=== PATIENT | male | born 1995 | race African-American/Black ===

== ENCOUNTER 2017-08-01 14:37 | Emergency (ER) | payer SELFPAY ==
[~2017-08-01 14:37] MED LIST: ALBU8I INH; DOXY100C PO; FLUTI110I INH; FLUTI220I INH; MEDR4PAK PO; MONT10TA2 PO
[2017-08-01 14:48] VITALS: BP 136/86; PULSE 137; RESP 22; TEMP 98.6; O2SAT 99
[2017-08-01 14:52] VITALS: BP 136/86; PULSE 124; RESP 22; TEMP 98.6; O2SAT 99
--- NOTE | 2017-08-01 14:53 | PD ---
HPI Chief Complaint: Respiratory Symptoms Time Seen by Provider: 14:49 Travel History International Travel<30 days: No Contact w/Intl Traveler<30days: No Traveled to known affect area: No History of Present Illness HPI 21-year-old Afro-[place]ic male with history of asthma presents the emergency department via EMS with severe asthma exacerbation. Patient states he's been having difficulty over the past 2 weeks. Patient has a nebulizer and albuterol inhaler which he's been using without improvement. Patient denies fever or chills. He has chest pain from working to breathe. Patient is able speak in short sentences. He denies abdominal pain nausea or vomiting. Patient does admit to smoking. His chest pain is about a 6 out of 10. Patient already received 125 mg Solu-Medrol IV as well as DuoNeb 3 via EMS. He has no known drug allergies. PFSH Past Medical History Asthma: Yes Diminished Hearing: No Gastrointestinal Disorders: No Respiratory: Yes (ASTHMA) Immunizations Current: Yes ?: Not Past Surgical History Other Surgery: No Social History Alcohol Use: No Tobacco Use: Yes (3 black and milds per day) Substance Use: No Allergies-Medications (Allergen,Severity, Reaction): Coded Allergies: No Known Allergies (Verified Adverse Reaction, Unknown, 08/01/17) Reported Meds & Prescriptions Reported Meds & Active Scripts Active Azithromycin 500 Mg Tab 500 Mg PO DAILY Albuterol Neb (Albuterol Sulfate) 2.5 Mg/3 Ml Neb 2.5 Mg NEB Q4HR NEB PRN Ventolin Hfa 18 GM Inh (Albuterol Sulfate) 90 Mcg/Act Aer 2 Puff INH Q4-6H PRN Flovent Hfa 12 GM Inh (Fluticasone Propionate) 220 Mcg/Act Inh 1 Puff INH BID Use daily at the same time. Singulair (Montelukast Sodium) 10 Mg Tab 10 Mg PO HS Prednisone 20 Mg Tab 20 Mg PO BID 7 Days Doxycycline Hyclate 100 Mg Cap 100 Mg PO BID Singulair (Montelukast Sodium) 10 Mg Tab 10 Mg PO HS Medrol Dosepak (Methylprednisolone) 4 Mg Dspk 4 Mg PO DIRECTED Per Pharmacist direction Flovent Hfa 12 GM Inh (Fluticasone Propionate) 110 Mcg/Act Inh 1 Puff INH BID Reported Singulair (Montelukast Sodium) 10 Mg Tab 10 Mg PO HS TAKE ONE 10 MG PILL DAILY BEFORE BED Flovent Hfa (Fluticasone Propionate) 220 Mcg Aero 2 Puff INH BID Ventolin Hfa (Albuterol Sulfate) 8 Gm Aero 2 Puff INH QID * SHAKE WELL BEFORE USE * DO 2 PUFFS 4 TIMES A DAY AND EVERY 2 HOURS IF NEEDED FOR WHEEZING. Review of Systems Except as stated in HPI: all other systems reviewed are Neg General / Constitutional: No: Fever, Chills Eyes: No: Visual changes HENT: No: Headaches Cardiovascular: Positive: Chest Pain or Discomfort Respiratory: Positive: Cough, Shortness of Breath, Wheezing, No: Sneezing, Orthopnea, Hemoptysis, Stridor, Night Sweats, Pleuritic Pain Gastrointestinal: No: Nausea, Vomiting, Diarrhea, Abdominal Pain Genitourinary: No: Dysuria Musculoskeletal: No: Pain Skin: No Rash Neurologic: No: Weakness Psychiatric: No: Depression Endocrine: No: Polydipsia Hematologic/Lymphatic: No: Easy Bruising Physical Exam Narrative GENERAL: Patient appears in mild to moderate respiratory distress. O2 sat is 100%. SKIN: Warm and dry. Normal Color. Normal turgor. HEAD: Atraumatic. Normocephalic. EYES: Pupils equal and round. No scleral icterus. No injection or drainage. ENT: No nasal bleeding or discharge. Mucous membranes pink and moist. TMs are clear. Pharynx is clear. Airway is patent. NECK: Trachea midline. Supple and nontender. CARDIOVASCULAR: Regular rate and rhythm. RESPIRATORY: Mild to moderate accessory muscle use. Moderate Diffuse wheezes throughout to auscultation. Breath sounds equal bilaterally. GASTROINTESTINAL: Abdomen soft, non-tender, nondistended. Hepatic and splenic margins not palpable. MUSCULOSKELETAL: Extremities without clubbing, cyanosis, or edema. No obvious deformities. NEUROLOGICAL: Awake and alert. No obvious cranial nerve deficits. Motor grossly within normal limits. Five out of 5 muscle strength in the arms and legs. Normal speech. PSYCHIATRIC: Appropriate mood and affect; insight and judgment normal. Data Data Last Documented VS Vital Signs Date Time Temp Pulse Resp B/P (MAP) Pulse Ox O2 Delivery O2 Flow Rate FiO2 08/01/17 14:55 100 Room Air 08/01/17 14:55 98.6 130 22 136/86 (103) Orders Orders Electrocardiogram (08/01/17 14:53) Complete Blood Count With Diff (12/31/17 14:53) Comprehensive Metabolic Panel (08/01/17 14:53) Chest, Single Ap (08/01/17 14:53) Ecg Monitoring (08/01/17 14:53) Iv Access Insert/Monitor (08/01/17 14:53) Oximetry (08/01/17 14:53) Oxygen Administration (08/01/17 14:53) Prednisone (Deltasone) (08/01/17 15:00) Albuterol-Ipratropium Neb (Duoneb Neb) (08/01/17 15:00) Sodium Chloride 0.9% Flush (Ns Flush) (08/01/17 15:00) Azithromycin (Zithromax) (08/01/17 15:00) Ondansetron Inj (Zofran Inj) (08/01/17 15:56) Ondansetron Inj (Zofran Inj) (08/01/17 16:15) Labs Laboratory Tests Test 08/01/17 15:00 White Blood Count 10.1 TH/MM3 Red Blood Count 5.32 MIL/MM3 Hemoglobin 16.1 GM/DL Hematocrit 47.1 % Mean Corpuscular Volume 88.5 FL Mean Corpuscular Hemoglobin 30.2 PG Mean Corpuscular Hemoglobin Concent 34.1 % Red Cell Distribution Width 13.1 % Platelet Count 194 TH/MM3 Mean Platelet Volume 7.2 FL Neutrophils (%) (Auto) 79.8 % Lymphocytes (%) (Auto) 10.6 % Monocytes (%) (Auto) 7.3 % Eosinophils (%) (Auto) 1.6 % Basophils (%) (Auto) 0.7 % Neutrophils # (Auto) 8.1 TH/MM3 Lymphocytes # (Auto) 1.1 TH/MM3 Monocytes # (Auto) 0.7 TH/MM3 Eosinophils # (Auto) 0.2 TH/MM3 Basophils # (Auto) 0.1 TH/MM3 CBC Comment DIFF FINAL Differential Comment Blood Urea Nitrogen 10 MG/DL Creatinine 1.08 MG/DL Random Glucose 96 MG/DL Total Protein 8.3 GM/DL Albumin 4.5 GM/DL Calcium Level 9.5 MG/DL Alkaline Phosphatase 70 U/L Aspartate Amino Transf (AST/SGOT) 34 U/L Alanine Aminotransferase (ALT/SGPT) 30 U/L Total Bilirubin 0.5 MG/DL Sodium Level 141 MEQ/L Potassium Level 3.5 MEQ/L Chloride Level 107 MEQ/L Carbon Dioxide Level 24.8 MEQ/L Anion Gap 9 MEQ/L Estimat Glomerular Filtration Rate 106 ML/MIN MDM Medical Decision Making Medical Screen Exam Complete: Yes Emergency Medical Condition: Yes Differential Diagnosis Bronchitis. Pneumonia. Asthma with acute exacerbation. Wheezing. Narrative Course Patient is medically stable at time of exam. Patient is given prednisone 60 mg by mouth as well as DuoNeb 3. Patient is given azithromycin 500 mg by mouth. Chest x-ray is ordered as well as CBC and CMP. EKG is ordered. EKG shows sinus tachycardia without ST changes. Labs are unremarkable. Patient is reassessed after the above treatment plan, and feels improved. Patient did develop some nausea, with vomiting 1. Patient was treated with Zofran 4 mg IV. Patient is reassessed and lung sounds are much improved. Patient will be continued on prednisone 20 mg twice a day 7 days. Patient is continued on azithromycin 500 mg daily 5 days. Patient is given refills of his Singulair 10 mg daily. Patient given refill of his Flovent 220, 1 puff twice a day. Patient is given refills of his Ventolin metered-dose inhaler, and albuterol for his nebulizer. Patient is recommended to follow-up with primary care physician as soon as possible. Patient is told to quit smoking as soon as possible. Patient can return to emergency department if symptoms worsen. Diagnosis Primary Impression: Asthma exacerbation Qualified Codes: J45.41 - Moderate persistent asthma with (acute) exacerbation Referrals: [facility] Patient Instructions: Asthma (ED), General Instructions, How to Stop Smoking ( DC) Additional Instructions: Patient will be continued on prednisone 20 mg twice a day 7 days. Patient is continued on azithromycin 500 mg daily 5 days. Patient is given refills of his Singulair 10 mg daily. Patient given refill of his Flovent 220, 1 puff twice a day. Patient is given refills of his Ventolin metered-dose inhaler, and albuterol for his nebulizer. Patient is recommended to follow-up with primary care physician as soon as possible. Patient is told to quit smoking as soon as possible. Patient can return to emergency department if symptoms worsen. Med/Other Pt SpecificInfo: Prescription(s) given Scripts Azithromycin (Azithromycin) 500 Mg Tab 500 MG PO DAILY for Infection, #5 TAB 0 Refills Prov: Jeffrey Golden MD 08/01/17 Albuterol Neb (Albuterol Neb) 2.5 Mg/3 Ml Neb 2.5 MG NEB Q4HR NEB Y for SHORTNESS OF BREATH, #120 NEBULE 0 Refills Prov: Jeffrey Golden MD 08/01/17 Albuterol 18 GM Inh (Ventolin Hfa 18 GM Inh) 90 Mcg/Act Aer 2 PUFF INH Q4-6H Y for SHORTNESS OF BREATH, #1 INHALER 0 Refills Prov: Jeffrey Golden MD 08/01/17 Fluticasone 12 GM Inh (Flovent Hfa 12 GM Inh) 220 Mcg/Act Inh 1 PUFF INH BID for Asthma Management, #1 INHALER 0 Refills Use daily at the same time. Prov: Jeffrey Golden MD 08/01/17 Montelukast (Singulair) 10 Mg Tab 10 MG PO HS, #30 TAB 0 Refills Prov: Jeffrey Golden MD 08/01/17 Prednisone (Prednisone) 20 Mg Tab 20 MG PO BID for 7 Days, #14 TAB 0 Refills Prov: Jeffrey Golden MD 08/01/17 Disposition: 01 DISCHARGE HOME Condition: Stable Devante Jaimes Aug 01, 2017 14:53
[2017-08-01 14:55] VITALS: BP 136/86; PULSE 130; RESP 22; TEMP 98.6; O2SAT 99
[2017-08-01] MEDS ORDERED: SODIUM CHLORIDE 0.9% FLUSH 10 ML FLUSH IVF PRN (15:00)
[2017-08-01] MEDS ORDERED: predniSONE 20 MG TAB PO ONE (15:00)
[2017-08-01] MEDS ORDERED: AZITHROMYCIN 250 MG TAB PO ONE (15:00)
[2017-08-01] MEDS: RESP: ALBUTEROL 2.5 MG/IPRATROPIUM 0.5 MG NEB (SCH) INH (15:14)
[2017-08-01 15:49] LABS: AUTOMATED NEUTROPHIL # 8.1 TH/MM3 (1.8-7.7); BASOPHIL # 0.1 TH/MM3 (0-0.2); BASOPHIL % 0.7 % (0.0-2.0); EOSINOPHIL # 0.2 TH/MM3 (0-0.4); EOSINOPHIL % 1.6 % (0.0-4.0); HEMATOCRIT 47.1 % (39.0-51.0); HEMOGLOBIN 16.1 GM/DL (13.0-17.0); LYMPH % 10.6 % (9.0-44.0); LYMPHOCYTE # 1.1 TH/MM3 (1.0-4.8); MEAN CELL VOLUME 88.5 FL (80.0-100.0); MEAN CORPUSCULAR HEMOGLOBIN 30.2 PG (27.0-34.0); MEAN CORPUSCULAR HGB CONC 34.1 % (32.0-36.0); MEAN PLATELET VOLUME 7.2 FL (7.0-11.0); MONO % 7.3 % (0.0-8.0); MONOCYTE # 0.7 TH/MM3 (0-0.9); NEUT % 79.8 % (16.0-70.0); PLATELET COUNT 194 TH/MM3 (150-450); RED BLOOD COUNT 5.32 MIL/MM3 (4.50-5.90); RED CELL DISTRIBUTION WIDTH 13.1 % (11.6-17.2); WHITE BLOOD COUNT 10.1 TH/MM3 (4.0-11.0)
[2017-08-01] MEDS ORDERED: ONDANSETRON HCL 4 MG/2 ML VIAL ONE (15:56)
[2017-08-01 16:04] LABS: ALKALINE PHOSPHATASE 70 U/L (45-117); ALT (GPT) 30 U/L (9-52); TOTAL BILIRUBIN ADULT 0.5 MG/DL (0.2-1.0); TOTAL PROTEIN 8.3 GM/DL (6.4-8.2)
[2017-08-01 16:06] LABS: ALBUMIN 4.5 GM/DL (3.4-5.0); AST (GOT) 34 U/L (15-39); BICARBONATE 24.8 MEQ/L (21.0-32.0); BLOOD UREA NITROGEN 10 MG/DL (7-18); CALCIUM 9.5 MG/DL (8.5-10.1); CHLORIDE 107 MEQ/L (98-107); CREATININE 1.08 MG/DL (0.60-1.30); GLOMERULAR FILTRATION RATE 106 ML/MIN (>89); GLUCOSE,RANDOM 96 MG/DL (74-106); SODIUM (NA) 141 MEQ/L (136-145)
--- NOTE | 2017-08-01 16:06 | RADRPT ---
EXAM DATE/TIME: 08/01/2017 15:31 [facility] COMPARISON: CHEST SINGLE AP, July 07, 2016, 0:24. INDICATIONS : Wheezing MEDICAL HISTORY : None. SURGICAL HISTORY : None. ENCOUNTER: Initial ACUITY: 1 day PAIN SCORE: 0/10 LOCATION: Bilateral chest FINDINGS: The lungs are clear without infiltrate, nodule, or mass. There is no appreciable pleural effusion fo r technique. Heart and mediastinum are unremarkable. CONCLUSION: No acute cardiopulmonary disease. Chilango Perez MD on August 01, 2017 at 16:03 Board Certified Radiologist. This report was verified electronically.
[2017-08-01] MEDS ORDERED: VENTAER INH (16:08)
[2017-08-01] MEDS ORDERED: ALBU0.08 NEB (16:08)
[2017-08-01] MEDS ORDERED: PRED20 PO (16:08)
[2017-08-01] MEDS ORDERED: MONT10TA2 PO (16:08)
[2017-08-01] MEDS ORDERED: FLUTI220I INH (16:08)
[2017-08-01] MEDS ORDERED: AZIT500T2 PO (16:08)
[2017-08-01] MEDS ORDERED: ONDANSETRON HCL 4 MG/2 ML VIAL IV PUSH ONE (16:15)
[2017-08-01 17:28] VITALS: BP 120/67
--- NOTE | 2017-08-01 19:34 | EKG ---
Date Performed: 08/01/2017 Time Performed: 15:13:20 PTAGE: 21 years EKG: SINUS TACHYCARDIA BORDERLINE RIGHT AXIS DEVIATION PATTERN CONSISTENT WITH PULMONARY DISEASE possible Lateral myocardial infarction POSSIBLE RIGHT VENTRICULAR CONDUCTION DELAY NONSPECIFIC T-WAV E ABNORMALITY ABNORMAL ECG No significant change from prior electrocardiogram. PREVIOUS TRACING : 07/07/2016 00.04 DOCTOR: Truong Huerta Interpretating Date/Time 08/01/2017 19:32:09
== END 2017-08-01 17:00 | disposition home or self-care (01) ==
LOC: NEPE 14:37
DX: J45.901 Unspecified asthma with (acute) exacerbation (principal); R07.9 Chest pain, unspecified; R00.0 Tachycardia, unspecified; R94.31 Abnormal electrocardiogram [ECG] [EKG]; F17.200 Nicotine dependence, unspecified, uncomplicated; Z79.51 Long term (current) use of inhaled steroids; Z79.899 Other long term (current) drug therapy
CPT/HCPCS: 71010; 80053; 85025; 93005; 94664; 96374; 99285; J2405; J7512

== ENCOUNTER 2017-12-10 09:49 | Emergency (ER) | payer SELFPAY ==
[~2017-12-10] VITALS: Ht 177.8 cm; Wt 68.0 kg
[~2017-12-10 09:49] MED LIST changes: +ALBU0.08 NEB; +AZIT500T2 PO; +PRED20 PO; +VENTAER INH
[2017-12-10 10:01] VITALS: BP 165/77; PULSE 95; RESP 18; TEMP 97.6; O2SAT 98
[2017-12-10] MEDS ORDERED: AZITHROMYCIN 250 MG TAB PO ONE (11:15)
[2017-12-10] MEDS ORDERED: predniSONE 20 MG TAB PO ONE (11:15)
[2017-12-10] MEDS: RESP: ALBUTEROL 2.5 MG/IPRATROPIUM 0.5 MG NEB (SCH) INH ×2 (11:32→11:33)
--- NOTE | 2017-12-10 11:38 | RADRPT ---
EXAM DATE/TIME: 12/10/2017 11:20 [facility] COMPARISON: No previous studies available for comparison. INDICATIONS : Congestion, wheezing, chest pains midsternal. MEDICAL HISTORY : Asthma SURGICAL HISTORY : None. ENCOUNTER: Initial ACUITY: 3 days PAIN SCORE: 8/10 LOCATION: Bilateral chest FINDINGS: PA and lateral views of the chest demonstrate the lungs to be symmetrically aerated without evidence of mass, infiltrate or effusion. The cardiomediastinal contours are unremarkable. Osseous structure s are intact. CONCLUSION: No acute disease. David Ching MD on December 10, 2017 at 11:32 Board Certified Radiologist. This report was verified electronically.
[2017-12-10] MEDS ORDERED: ALBU0.08 NEB (11:56)
[2017-12-10] MEDS ORDERED: MONT10TA2 PO (11:56)
[2017-12-10] MEDS ORDERED: FLUTI110I INH (11:56)
[2017-12-10] MEDS ORDERED: VENTAER INH (11:56)
[2017-12-10] MEDS ORDERED: CEPH-460 PO (11:56)
--- NOTE | 2017-12-10 11:58 | PD ---
HPI Chief Complaint: Cold / Flu Symptoms Time Seen by Provider: 10:57 Travel History International Travel<30 days: No Contact w/Intl Traveler<30days: No Traveled to known affect area: No History of Present Illness HPI 22-year-old -[place]inese male with history of asthma presents emergency department with one-week history of increasing cough, shortness of breath, and wheezing. Patient states he is out of his meds except for his nebulizer. He denies significant fever but has had increased productive cough and wheezing. He denies significant chest pain. He has no nausea or vomiting or abdominal pain. Patient has no known drug allergies. PFSH Past Medical History Asthma: Yes Autoimmune Disease: No Blood Disorders: No Anxiety: No Depression: No Cardiovascular Problems: No Diminished Hearing: No Gastrointestinal Disorders: No Genitourinary: No Musculoskeletal: Yes Neurologic: No Psychiatric: No Respiratory: Yes (ASTHMA) Immunizations Current: Yes Sickle Cell Disease: No Past Surgical History Other Surgery: No Social History Alcohol Use: No Tobacco Use: Yes (3 black and milds per day) Substance Use: Yes (marijuana) Allergies-Medications (Allergen,Severity, Reaction): Coded Allergies: No Known Allergies (Verified Adverse Reaction, Unknown, 08/01/17) Reported Meds & Prescriptions Reported Meds & Active Scripts Active Keflex (Cephalexin) 500 Mg Capsule 500 Mg PO Q8H 10 Days Flovent Hfa 12 GM Inh (Fluticasone Propionate) 110 Mcg/Act Inh 1 Puff INH BID Singulair (Montelukast Sodium) 10 Mg Tab 10 Mg PO HS Ventolin Hfa 18 GM Inh (Albuterol Sulfate) 90 Mcg/Act Aer 2 Puff INH Q4-6H PRN Albuterol Neb (Albuterol Sulfate) 2.5 Mg/3 Ml Neb 2.5 Mg NEB Q4HR NEB PRN Review of Systems Except as stated in HPI: all other systems reviewed are Neg General / Constitutional: No: Fever, Chills Eyes: No: Visual changes HENT: Positive: Rhinitis, Rhinorrhea, Congestion, No: Headaches, Vertigo, Lightheadedness, Sore Throat, Nosebleed, Neck Stiffness, Neck Pain, Gingival Bleeding, Dental Difficulties, Ear Discharge, Earache Cardiovascular: Positive: Dyspnea on exertion, No: Chest Pain or Discomfort, Palpitations, Irregular Rhythm, Tachycardia Respiratory: Positive: Cough, Shortness of Breath, Wheezing Gastrointestinal: No: Nausea, Vomiting, Diarrhea, Abdominal Pain Genitourinary: No: Dysuria Musculoskeletal: No: Myalgias, Arthralgias, Limited ROM, Pain Skin: No Rash Neurologic: No: Weakness Psychiatric: No: Depression Endocrine: No: Polydipsia Hematologic/Lymphatic: No: Easy Bruising Physical Exam Narrative GENERAL: Patient appears in no obvious distress. SKIN: Warm and dry. Normal color. Normal turgor. HEAD: Atraumatic. Normocephalic. EYES: Pupils equal and round. No scleral icterus. No injection or drainage. ENT: No nasal bleeding or discharge. Mucous membranes pink and moist. Pharynx is clear. Airways patent. TMs are clear. No sinus tenderness to palpation. NECK: Trachea midline. Supple and nontender. CARDIOVASCULAR: Regular rate and rhythm. RESPIRATORY: No accessory muscle use. Diffuse wheezes and mild diffuse rales to auscultation. Breath sounds equal bilaterally. MUSCULOSKELETAL: Extremities without clubbing, cyanosis, or edema. No obvious deformities. NEUROLOGICAL: Awake and alert. No obvious cranial nerve deficits. Motor grossly within normal limits. Five out of 5 muscle strength in the arms and legs. Normal speech. PSYCHIATRIC: Appropriate mood and affect; insight and judgment normal. Data Data Last Documented VS Vital Signs Date Time Temp Pulse Resp B/P (MAP) Pulse Ox O2 Delivery O2 Flow Rate FiO2 12/10/17 10:01 97.6 95 18 165/77 (106) 98 Orders Orders Chest, Pa & Lat (12/10/17 11:11) Prednisone (Deltasone) (12/10/17 11:15) Albuterol-Ipratropium Neb (Duoneb Neb) (12/10/17 11:15) Azithromycin (Zithromax) (12/10/17 11:15) Ed Discharge Order (12/10/17 11:47) Ondansetron Odt (Zofran Odt) (12/10/17 12:00) [facility] Medical Decision Making Medical Screen Exam Complete: Yes Emergency Medical Condition: Yes Differential Diagnosis Bronchitis. Pneumonia. Asthma with acute asthmatic flare. Wheezing. Narrative Course Patient is given azithromycin 500 mg p.o. now Patient is given DuoNeb 3 . Chest x-ray PA and lateral is ordered without significant findings per radiologist. Patient will be continued on Keflex 500 mg 3 times daily for 10 days. Patient is continued on prednisone 20 mg twice daily for 5 days. Patient given refills of his Flovent 110. 1 puff twice daily. Patient given a refill of his Ventolin HFA 2 puffs every 6 hours as needed. Patient is given a refill of his Singulair 10 mg daily #30 Patient is given a refill of his albuterol for his nebulizer as directed 120 with no refill. Patient to follow-up with [facility]. Diagnosis Primary Impression: Asthma exacerbation Qualified Codes: J45.41 - Moderate persistent asthma with (acute) exacerbation Referrals: [facility] Patient Instructions: General Instructions Additional Instructions: Patient is given azithromycin 500 mg p.o. now Patient is given DuoNeb 3 . Chest x-ray PA and lateral is ordered without significant findings per radiologist. Patient will be continued on Keflex 500 mg 3 times daily for 10 days. Patient is continued on prednisone 20 mg twice daily for 5 days. Patient given refills of his Flovent 110. 1 puff twice daily. Patient given a refill of his Ventolin HFA 2 puffs every 6 hours as needed. Patient is given a refill of his Singulair 10 mg daily #30 Patient is given a refill of his albuterol for his nebulizer as directed 120 with no refill. Patient to follow-up with [facility]. Med/Other Pt SpecificInfo: Prescription(s) given Scripts Cephalexin (Keflex) 500 Mg Capsule 500 MG PO Q8H for Infection for 10 Days, #30 CAP 0 Refills Prov: Kay Obrien MD 12/10/17 Fluticasone 12 GM Inh (Flovent Hfa 12 GM Inh) 110 Mcg/Act Inh 1 PUFF INH BID for Asthma Management, #1 INHALER 0 Refills Prov: Kay Obrien MD 12/10/17 Montelukast (Singulair) 10 Mg Tab 10 MG PO HS, #30 TAB 0 Refills Prov: Kay Obrien MD 12/10/17 Albuterol 18 GM Inh (Ventolin Hfa 18 GM Inh) 90 Mcg/Act Aer 2 PUFF INH Q4-6H Y for SHORTNESS OF BREATH, #1 INHALER 0 Refills Prov: Kay Obrien MD 12/10/17 Albuterol Neb (Albuterol Neb) 2.5 Mg/3 Ml Neb 2.5 MG NEB Q4HR NEB Y for SHORTNESS OF BREATH, #120 NEBULE 0 Refills Prov: Kay Obrien MD 12/10/17 Disposition: 01 DISCHARGE HOME Condition: Stable Devante Jaimes December 10, 2017 11:57
[2017-12-10] MEDS ORDERED: ONDANSETRON ODT 4 MG TAB PO ONE (12:00)
[2017-12-10] MEDS ORDERED: PRED20 PO (12:06)
== END 2017-12-10 12:24 | disposition home or self-care (01) ==
LOC: NEPD 09:49
DX: J45.41 Moderate persistent asthma with (acute) exacerbation (principal); F12.90 Cannabis use, unspecified, uncomplicated; F17.200 Nicotine dependence, unspecified, uncomplicated
CPT/HCPCS: 71046; 94640; 94664; 99285; J7512